=== PATIENT | male | born 1990 | race Two or more races ===

== ENCOUNTER 2017-06-22 18:00 | Emergency (ER) | payer MEDICAID ==
[~2017-06-22] VITALS: Ht 170.2 cm; Wt 68.0 kg
[2017-06-22 18:45] VITALS: BP 124/80
[2017-06-22] MEDS ORDERED: BACLOFEN 10 MG TAB PO ONE (19:15)
[2017-06-22] MEDS ORDERED: IBUPROFEN 600 MG TAB PO ONE (19:15)
== END 2017-06-22 20:03 | disposition home or self-care (01) ==
LOC: ER 18:10 → EDBD 18:10 → ER 20:03
DX: R51 Headache (principal); F17.210 Nicotine dependence, cigarettes, uncomplicated; R42 Dizziness and giddiness

== ENCOUNTER 2017-06-23 05:11 | Emergency (ER) | payer MEDICAID ==
[~2017-06-23] VITALS: Ht 170.2 cm; Wt 68.0 kg
[2017-06-23 05:26] VITALS: BP 155/67
== END 2017-06-23 07:36 | disposition home or self-care (01) ==
LOC: ER 05:14
DX: J01.10 Acute frontal sinusitis, unspecified (principal); J02.9 Acute pharyngitis, unspecified; F15.10 Other stimulant abuse, uncomplicated; F12.10 Cannabis abuse, uncomplicated